=== PATIENT | male | born 1950 | race Caucasian/White ===

== ENCOUNTER 2023-02-18 16:00 | Outpatient (CLI) | payer MEDICARE, SELFPAY | END 2023-02-18 16:01 | disposition home or self-care (01) | PROVIDERS: PCP Family Medicine; Visit Provider Family Medicine | DX: R59.1 Generalized enlarged lymph nodes (principal); R97.20 Elevated prostate specific antigen [PSA]; M79.605 Pain in left leg; M79.606 Pain in leg, unspecified; E13.9 Other specified diabetes mellitus without complications; I10 Essential (primary) hypertension; E78.5 Hyperlipidemia, unspecified | CPT/HCPCS: 80053; 84153; 86140 ==